=== PATIENT | female | born 1990 | race Hispanic/Latino ===

== ENCOUNTER 2018-10-18 19:37 | Emergency (ER) | payer BC ==
--- OUTSIDE RECORDS SUMMARY | 2018-10-18 19:41 | XMS REPORT ---
:1990 Author Organization eClinicalWorks Care Team Providers Name Role Phone Amanda Wyatt Provider Role Unavailable Allergies, Adverse Reactions, Alerts Substance Reaction Event Type N.K.D.A. Info Not Available Non Drug Allergy Problems Problem Type Condition Code Onset Dates Condition Status Assessment Irregular menstrual cycle N92.6 Active Assessment Encounter for screening for Z12.4 Active malignant neoplasm of cervix Problem Irregular menstrual cycle N92.6 Active Assessment Encounter for contraceptive Z30.9 Active management, unspecified Assessment Encounter for gynecological Z01.419 Active examination (general) (routine) without abnormal findings Medications Medication Code Code Instructions Start End Status Dosage System Date Date Excein [facility] 24108744180 250-250-65 MG Active 2 tablets Migraine Orally every 6 as needed hrs Results Name Result Date Reference Range Unit Abnormality Flag TEST URINE ----RESULTS neg 20170811 URINALYSIS AUTO W/O SCOPE (17547) ----PROTEIN neg 20170811 ----pH 5.5 20170811 ----NIT neg 20170811 ----TIERNEY neg [id number] ----URO 0.2 20170811 ----SPECIFIC GRAVITY 1.005 20170811 ----BLO 1+ 20170811 ----BILIRUBIN neg [id number] ----KETONES neg [id number] ----GLUCOSE neg [id number] Summary Purpose eClinicalWorks Submission
[2018-10-18 20:42] LABS: Absolute Lymphocytes (CBC) 1.9 K/uL (0.7-4.9); Basophils % 0.5 % (0-1.3); Lymphocytes % 18.4 % (15.3-44.8); MPV 9.4 fL (7.6-11.3); Monocytes % 5.7 % (3.3-12.3); RBC Red Blood Cell Count 4.29 M/uL (3.86-4.86)
[2018-10-18] MEDS ORDERED: ONDANSETRON 4 MG/2 ML VIAL ONE (20:50)
[2018-10-18] MEDS ORDERED: NA CHLORIDE 0.9% 500 ML ONE (20:50)
[2018-10-18] MEDS ORDERED: FAMOTIDINE 20 MG/2 ML VIAL IV ONE (20:51)
[2018-10-18] MEDS ORDERED: KETOROLAC 30 MG/ML INJ ONE (20:51)
[2018-10-18 20:57] LABS: ALT/SGPT 27 U/L (12-78); AST/SGOT 18 U/L (15-37); Albumin 3.8 g/dL (3.4-5.0); Alkaline Phosphatase 71 U/L (45-117); BUN Blood Urea Nitrogen 12 mg/dL (7-18); Bicarbonate 24 mmol/L (21-32); Bilirubin Direct < 0.1 mg/dL (0-0.2); Bilirubin Total 0.2 mg/dL (0.2-1.0); Glucose Level 102 mg/dL (74-106); Magnesium 2.3 mg/dL (1.8-2.4); NT PRO-BNP 44 pg/mL (<125); Potassium 3.7 mmol/L (3.5-5.1); Protein, Total 7.2 g/dL (6.4-8.2); Sodium Level 140 mmol/L (136-145); Troponin (Emerg Dept Use Only) < 0.02 ng/mL (0.0-0.045)
--- NOTE | 2018-10-18 21:42 | ER ---
Nurse's Notes [facility] Name: Selina Montalvo Age: 27 yrs Sex: Female : 1990 Arrival Date: 10/18/2018 Time: 19:41 Bed 23 Private MD: Basil Herron Diagnosis: Chest pain, unspecified;Chest pain on breathing;Pleurisy Presentation: 10/18 19:47 Presenting complaint: Patient states: int CP x 1 year but over the past 2 days has aa1 become constant. Denies any other symptoms. Transition of care: patient was not received from another setting of care. Onset of symptoms was October 17, 2018. Risk Assessment: Do you want to hurt yourself or someone else? Patient reports no desire to harm self or others. Initial Sepsis Screen: Does the patient meet any 2 criteria? No. Patient's initial sepsis screen is negative. Does the patient have a suspected source of infection? No. Patient's initial sepsis screen is negative. Care prior to arrival: None. 19:47 Method Of Arrival: Ambulatory aa1 19:47 Acuity: ELIS 3 aa1 Triage Assessment: 19:48 General: Appears in no apparent distress. comfortable, Behavior is calm, cooperative, aa1 appropriate for age. 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 - Social history:: Smoking status: Patient/guardian denies using tobacco. - Ebola Screening: : No symptoms or risks identified at this time. Screenin:55 Abuse screen: Denies threats or abuse. Denies injuries from another. Nutritional aj1 screening: No deficits noted. Tuberculosis screening: No symptoms or risk factors identified. 21:57 Fall Risk None identified. aj1 Assessment: 19:55 General: Appears in no apparent distress. comfortable, Behavior is calm, cooperative, aj1 appropriate for age. Pain: Complains of pain in chest. Neuro: Level of Consciousness is awake, alert, obeys commands, Oriented to person, place, time, situation. Cardiovascular: Reports chest pain, Heart tones S1 S2 present Patient's skin is warm and dry. Rhythm is sinus rhythm. Respiratory: Airway is patent Respiratory effort is even, unlabored, Respiratory pattern is regular, symmetrical. GI: No signs and/or symptoms were reported involving the gastrointestinal system. : No signs and/or symptoms were reported regarding the genitourinary system. EENT: No signs and/or symptoms were reported regarding the EENT system. Derm: No signs and/or symptoms reported regarding the dermatologic system. Skin is pink, warm \T\ dry. normal. Musculoskeletal: No signs and/or symptoms reported regarding the musculoskeletal system. Circulation, motion, and sensation intact. 20:53 Reassessment: Patient appears in no apparent distress at this time. No changes from aj1 previously documented assessment. Patient and/or family updated on plan of care and expected duration. Pain level reassessed. Patient is alert, oriented x 3, equal unlabored respirations, skin warm/dry/pink. 21:43 Reassessment: Patient appears in no apparent distress at this time. No changes from aj1 previously documented assessment. Patient and/or family updated on plan of care and expected duration. Pain level reassessed. Patient is alert, oriented x 3, equal unlabored respirations, skin warm/dry/pink. Vital Signs: 19:48 BP 155 / 101; Pulse 82; Resp 16; Temp 98.5; Pulse Ox 100% on R/A; Weight 68.04 kg; aa1 Height 5 ft. 5 in. (165.10 cm); Pain 7/10; 20:53 BP 119 / 79; Pulse 77; Resp 18; Pulse Ox 100% on R/A; aj1 21:43 BP 122 / 80; Pulse 75; Resp 18; Pulse Ox 100% on R/A; aj1 19:48 Body Mass Index 24.96 (68.04 kg, 165.10 cm) aa1 ED Course: 19:41 Patient arrived in ED. es 19:42 Basil Herron DO is Private Physician. es 19:45 Umesh Joseph MD is Attending Physician. kdr 19:48 Triage completed. aa1 19:48 Arm band placed on right wrist. aa1 19:55 Patient has correct armband on for positive identification. Bed in low position. Call aj1 light in reach. Side rails up X 1. court monitor on. Pulse ox on. NIBP on. 19:55 No provider procedures requiring assistance completed. aj1 20:06 Megan Ríos, RN is Primary Nurse. aj1 20:21 Initial lab(s) drawn, by me, sent to lab. EKG done, by ED staff. Inserted saline lock: lt1 20 gauge in right antecubital area, using aseptic technique. 20:54 XRAY Chest (1 view) In Process Unspecified. EDMS 21:41 Basil Herron DO is Referral Physician. kdr 21:57 IV discontinued, intact, bleeding controlled, No redness/swelling at site. Pressure aj1 dressing applied. Administered Medications: 20:45 Drug: Zofran 4 mg Route: IVP; Site: right antecubital; aj1 21:44 Follow up: Response: No adverse reaction aj1 20:45 Drug: NS 0.9% 500 ml Route: IV; Rate: bolus; Site: right antecubital; aj1 21:44 Follow up: IV Status: Completed infusion; IV Intake: 500ml aj1 20:45 Drug: Pepcid 20 mg Route: IVP; Site: right antecubital; aj1 21:45 Follow up: Response: No adverse reaction aj1 20:46 Drug: TORadol - Ketorolac 15 mg Route: IVP; Site: right antecubital; aj1 21:44 Follow up: Response: No adverse reaction aj1 21:45 Drug: SOLU-Medrol 125 mg Route: IVP; Site: right antecubital; aj1 21:57 Follow up: Response: No adverse reaction aj1 Intake: 21:44 IV: 500ml; Total: 500ml. aj1 Outcome: 21:42 Discharge ordered by . kdr 21:57 Discharged to home ambulatory, with family. aj1 21:57 Condition: good 21:57 Discharge instructions given to patient, Instructed on discharge instructions, follow up and referral plans. medication usage, Demonstrated understanding of instructions, follow-up care, medications, Prescriptions given X 3. 22:00 Patient left the ED. aj1 Signatures: Dispatcher [employer] EDMN Megan Ríos, DARBY RN aj1 Ebony Choi RN RN aa1 Umesh Joseph MD MD kdr Salyer, Edna es Tran, Leah lt1
--- NOTE | 2018-10-18 21:43 | EDPHYS ---
Physician Documentation [facility] Name: Selina Montalvo Age: 27 yrs Sex: Female : 1990 Arrival Date: 10/18/2018 Time: 19:41 Bed 23 Private MD: Gopal [facility] ED Physician Umesh Joseph HPI: 10/18 21:38 This 27 yrs old Female presents to ER via Ambulatory with complaints of Chest kdr pain x 2days. 21:38 The patient or guardian reports chest pain that is located primarily in the substernal kdr area, anterior chest wall, bilaterally. The pain does not radiate. Associated signs and symptoms: Pertinent positives: shortness of breath, Pertinent negatives: abdominal pain, cough, diaphoresis, dizziness, headache, lower extremity pain, lower extremity swelling, lightheadedness, nausea. The chest pain is described as burning, sharp, stabbing. Duration: The patient or guardian reports multiple episodes, that are intermittent, that wax and wane, with no pattern. Modifying factors: The symptoms are alleviated by nothing. the symptoms are aggravated by breathing, cough, deep breath, exertion, movement, twisting torso. Severity of pain: At its worst the pain was moderate in the emergency department the pain is unchanged. The patient has not experienced similar symptoms in the past, The has been intermittent for some weeks. The patient has not recently seen a physician. 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 - Social history:: Smoking status: Patient/guardian denies using tobacco. - Ebola Screening: : No symptoms or risks identified at this time. ROS: 21:38 Constitutional: Negative for fever, chills, and weight loss, Eyes: Negative for injury, kdr pain, redness, and discharge, ENT: Negative for injury, pain, and discharge, Neck: Negative for injury, pain, and swelling, Respiratory: Negative for shortness of breath, cough, wheezing, and pleuritic chest pain, Abdomen/GI: Negative for abdominal pain, nausea, vomiting, diarrhea, and constipation, Back: Negative for injury and pain, : Negative for injury, bleeding, discharge, and swelling, MS/Extremity: Negative for injury and deformity, Skin: Negative for injury, rash, and discoloration, Neuro: Negative for headache, weakness, numbness, tingling, and seizure activity. Psych: Negative for depression, anxiety, suicide ideation, homicidal ideation, and hallucinations, Allergy/Immunology: Negative for hives, rash, and allergies, Endocrine: Negative for neck swelling, polydipsia, polyuria, polyphagia, and marked weight changes, Hematologic/Lymphatic: Negative for swollen nodes, abnormal bleeding, and unusual bruising. 21:38 Cardiovascular: Positive for chest pain, Negative for edema, orthopnea, palpitations, paroxysmal nocturnal dyspnea. Exam: 21:04 ECG was reviewed by the Attending Physician. kdr 21:38 Constitutional: This is a well developed, well nourished patient who is awake, alert, kdr and in mild distress. Head/Face: Normocephalic, atraumatic. Eyes: Pupils equal round and reactive to light, extra-ocular motions intact. Lids and lashes normal. Conjunctiva and sclera are non-icteric and not injected. Cornea within normal limits. Periorbital areas with no swelling, redness, or edema. Neck: Trachea midline, no thyromegaly or masses palpated, and no cervical lymphadenopathy. Supple, full range of motion without nuchal rigidity, or vertebral point tenderness. No Meningismus. Chest/axilla: Normal chest wall appearance and motion. Nontender with no deformity. No lesions are appreciated. Cardiovascular: Regular rate and rhythm with a normal S1 and S2. No gallops, murmurs, or rubs. Normal PMI, no JVD. No pulse deficits. Respiratory: Lungs have equal breath sounds bilaterally, clear to auscultation and percussion. No rales, rhonchi or wheezes noted. No increased work of breathing, no retractions or nasal flaring. Abdomen/GI: Soft, non-tender, with normal bowel sounds. No distension or tympany. No guarding or rebound. No evidence of tenderness throughout. Back: No spinal tenderness. No costovertebral tenderness. Full range of motion. Skin: Warm, dry with normal turgor. Normal color with no rashes, no lesions, and no evidence of cellulitis. MS/ Extremity: Pulses equal, no cyanosis. Neurovascular intact. Full, normal range of motion. Neuro: Awake and alert, GCS 15, oriented to person, place, time, and situation. Cranial nerves II-XII grossly intact. Motor strength 5/5 in all extremities. Sensory grossly intact. Cerebellar exam normal. Normal gait. Psych: Awake, alert, with orientation to person, place and time. Behavior, mood, and affect are within normal limits. Vital Signs: 19:48 BP 155 / 101; Pulse 82; Resp 16; Temp 98.5; Pulse Ox 100% on R/A; Weight 68.04 kg; aa1 Height 5 ft. 5 in. (165.10 cm); Pain 7/10; 20:53 BP 119 / 79; Pulse 77; Resp 18; Pulse Ox 100% on R/A; aj1 21:43 BP 122 / 80; Pulse 75; Resp 18; Pulse Ox 100% on R/A; aj1 19:48 Body Mass Index 24.96 (68.04 kg, 165.10 cm) aa1 MDM: 21:38 Data reviewed: vital signs, nurses notes, lab test result(s), radiologic studies. kdr Counseling: I had a detailed discussion with the patient and/or guardian regarding: the historical points, exam findings, and any diagnostic results supporting the discharge/admit diagnosis, lab results, radiology results, the need for outpatient follow up. 21:42 Patient medically screened. [facility] 10/18 20:31 Order name: Basic Metabolic Panel; Complete Time: 21:34 [facility] 10/18 20:31 Order name: Liver (Hepatic) Function; Complete Time: 21:34 [facility] 10/18 20:32 Order name: Troponin (Emerg Dept Use Only); Complete Time: 21:34 [facility] 10/18 20:32 Order name: NT PRO-BNP; Complete Time: 21:34 [facility] 10/18 20:32 Order name: Magnesium; Complete Time: 21:34 [facility] 10/18 20:32 Order name: CBC with Automated Diff; Complete Time: 21:34 [facility] 10/18 20:32 Order name: Protime (+INR); Complete Time: 21:34 [facility] 10/18 19:57 Order name: XRAY Chest (1 view) [facility] 10/18 19:57 Order name: EKG; Complete Time: 20:31 [facility] 10/18 19:57 Order name: Cardiac monitoring; Complete Time: 20:22 [facility] 10/18 19:57 Order name: EKG - Nurse/Tech; Complete Time: 20:22 [facility] 10/18 19:57 Order name: IV Saline Lock; Complete Time: 20:22 [facility] 10/18 19:57 Order name: Labs collected and sent; Complete Time: 20: [facility] 10/18 19:57 Order name: O2 Per Protocol; Complete Time: 20: [facility] 10/18 19:57 Order name: O2 Sat Monitoring; Complete Time: 20:22 kdr EC:04 Rate is 73 beats/min. Rhythm is regular, Normal Sinus Rhythm with No ectopy. MI kdr interval is normal. QRS interval is normal. QT interval is normal. No Q waves. No ST changes noted. Clinical impression: Normal ECG. Administered Medications: 20:45 Drug: Zofran 4 mg Route: IVP; Site: right antecubital; aj1 21:44 Follow up: Response: No adverse reaction aj1 20:45 Drug: NS 0.9% 500 ml Route: IV; Rate: bolus; Site: right antecubital; aj1 21:44 Follow up: IV Status: Completed infusion; IV Intake: 500ml aj1 20:45 Drug: Pepcid 20 mg Route: IVP; Site: right antecubital; aj1 21:45 Follow up: Response: No adverse reaction aj1 20:46 Drug: TORadol - Ketorolac 15 mg Route: IVP; Site: right antecubital; aj1 21:44 Follow up: Response: No adverse reaction aj1 21:45 Drug: SOLU-Medrol 125 mg Route: IVP; Site: right antecubital; aj1 21:57 Follow up: Response: No adverse reaction aj1 Disposition: 10/18/18 21:42 Discharged to Home. Impression: Chest pain, unspecified, Chest pain on breathing, Pleurisy. - Condition is Stable. - Discharge Instructions: Nonspecific Chest Pain, Costochondritis, Pleurisy, Nonspecific Chest Pain, [id number]. - Prescriptions for Ibuprofen 600 mg Oral Tablet - take 1 tablet by ORAL route every 6 hours As needed take with food; 15 tablet. Tramadol 50 mg Oral Tablet - take 1 tablet by ORAL route every 8 hours as needed; 12 tablet. Medrol (Pierre) 4 mg Oral Tablets, Dose Pack - take 1 tablet by ORAL route as directed - follow package instructions; 1 packet. - Medication Reconciliation Form, Thank You Letter, Prescription Opioid Use form. - Follow up: Basil Herron DO; When: 1 - 2 days; Reason: If symptoms return, Further diagnostic work-up, Recheck today's complaints, Continuance of care, Re-evaluation by your physician. - Problem is new. - Symptoms have improved. Signatures: Dispatcher [employer] EDMS Megan Ríos RN RN aj1 Ebony Choi RN RN aa1 Umesh Joseph MD MD kdr Corrections: (The following items were deleted from the chart) 21:20 20:31 PROTIME (+INR)+COAG.LAB.BRZ ordered. EDMS EDMS 21:21 20:31 BASIC METABOLIC PANEL+C.LAB.BRZ ordered. EDMS EDMS 21:21 20:31 CBC+H.LAB.BRZ ordered. EDMS EDMS 21:21 20:31 HEPATIC FUNCTION+C.LAB.BRZ ordered. EDMS EDMS 21:21 20:31 MAGNESIUM+C.LAB.BRZ ordered. EDMS EDMS 21:21 20:31 PROBNP+C.LAB.BRZ ordered. EDMS EDMS 21:21 20:31 TROPONIN (EMERG DEPT USE ONLY)+C.LAB.BRZ ordered. EDAK EDMS 22:00 21:42 10/18/2018 21:42 Discharged to Home. Impression: Chest pain, unspecified; Chest aj1 pain on breathing; Pleurisy. Condition is Stable. Forms are Medication Reconciliation Form, Thank You Letter, Antibiotic Education, Prescription Opioid Use. Follow up: Basil Herron; When: 1 - 2 days; Reason: If symptoms return, Further diagnostic work-up, Recheck today's complaints, Continuance of care, Re-evaluation by your physician. Problem is new. Symptoms have improved. kdr
[2018-10-18] MEDS ORDERED: METHYLPREDNISOLONE 125 MG INJ ONE (22:06)
--- NOTE | 2018-10-19 08:58 | RAD REPORT ---
EXAM DESCRIPTION: RAD - Chest Single View - 10/18/2018 8:54 pm CLINICAL HISTORY: Chest pain COMPARISON: None. TECHNIQUE: AP portable chest image was obtained 0 hours . FINDINGS: Lung volumes are low accentuating vasculature and lung markings. Minimal edema or infiltra te could be masked in this setting. Lung base atelectasis is present. Heart and vasculature are chana l. No measurable pleural effusion and no pneumothorax. No acute bony abnormality seen. No acute aorti c findings suspected. IMPRESSION: Shallow inspiration exam with lung base atelectasis. This could potentially mask early i nfiltrate or edema.
--- NOTE | 2018-10-19 14:50 | EKG ---
Test Date: 2018-10-18 Test Time: 20:05:08 Microelectronics Technician: KARMA MEASUREMENT RESULTS: Intervals: Rate: 73 WI: 128 QRSD: 70 QT: 364 QTc: 401 [place]: P: 32 WI: 128 QRS: 38 T: 33 INTERPRETIVE STATEMENTS: Normal sinus rhythm Normal ECG No previous ECG available for comparison Electronically Signed On 10-19-18 14:47:26 CDT by Benjamin Donahue
== END 2018-10-18 22:00 | disposition home or self-care (01) ==
LOC: ER 19:37
DX: R09.1 Pleurisy (principal); R07.9 Chest pain, unspecified
CPT/HCPCS: 36415; 71045; 80048; 80076; 83735; 83880; 84484; 85025; 85610; 93005; 96361; 96374; 96375; 99284; J2405; J2930

== ENCOUNTER 2019-01-15 09:50 | Emergency (ER) | payer BC ==
--- OUTSIDE RECORDS SUMMARY | 2019-01-15 09:52 | XMS REPORT ---
[...] End Status Dosage System Date Date Excein [facility] [id number] 250-250-65 MG Active 2 tablets Migraine Orally every 6 as needed hrs Results Name Result Date Reference Range Unit Abnormality Flag TEST URINE ----RESULTS neg [id number] URINALYSIS AUTO W/O SCOPE (32048) ----PROTEIN neg 20170811 ----pH 5.5 20170811 ----NIT neg [id number] ----TIERNEY neg [id number] ----URO 0.2 20170811 ----SPECIFIC GRAVITY 1.005 20170811 ----BLO 1+ 20170811 ----BILIRUBIN neg [id number] ----KETONES neg [id number] ----GLUCOSE neg [id number] Summary Purpose eClinicalWorks Submission
[2019-01-15] MEDS ORDERED: KETOROLAC 30 MG/ML INJ ONE (10:46)
[2019-01-15] MEDS ORDERED: PROMETHAZINE 25 MG/ML VIAL ONE (10:46)
[2019-01-15] MEDS ORDERED: DIPHENHYDRAMINE 50 MG/ML VIAL ONE (10:46)
[2019-01-15] MEDS ORDERED: NA CHLORIDE 0.9% 1,000 ML ONE ×2 (10:46→12:01)
[2019-01-15 10:58] LABS: Absolute Lymphocytes (CBC) 1.2 K/uL (0.7-4.9); Basophils % 0.6 % (0-1.3); Hematocrit 37.5 % (36.0-45.0); Lymphocytes % 13.9 % (15.3-44.8); MPV 8.9 fL (7.6-11.3); RBC Red Blood Cell Count 4.73 M/uL (3.86-4.86)
[2019-01-15 11:09] LABS: Urine Blood NEGATIVE (NEG); Urine Glucose NEGATIVE (NEG); Urine Protein NEGATIVE (NEG); Urine Specific Gravity 1.015 (1.005-1.030); Urine pH 8.5 (5.0-7.0)
[2019-01-15 11:19] LABS: BUN Blood Urea Nitrogen 13 mg/dL (7-18); Bicarbonate 27 mmol/L (21-32); Glucose Level 106 mg/dL (74-106); Potassium 3.7 mmol/L (3.5-5.1); Sodium Level 145 mmol/L (136-145)
[2019-01-15 11:29] LABS: Urine Amorphous Sediment 3+ /HPF (NONE SEEN); Urine Bacteria <20 /HPF (<20); Urine Culture Reflex Order NOT NEEDED; Urine RBC <5 /HPF (NONE SEEN)
[2019-01-15] MEDS ORDERED: FENTANYL CITR 100 MCG/2 ML ONE (12:01)
--- NOTE | 2019-01-15 13:32 | EDPHYS ---
Physician Documentation [facility] Name: Selina Montalvo Age: 28 yrs Sex: Female : 1990 Arrival Date: 01/15/2019 Time: 09:52 Bed 15 Private MD: Unknown, Unknown ED Physician Jenn Moise HPI: 01/15 11:11 This 28 yrs old Female presents to ER via Ambulatory with complaints of snw Headache, Vomiting. 11:11 The patient complains of pain to the top of head and forehead. The patient describes snw the headache as a pressure, throbbing. Onset: The symptoms/episode began/occurred yesterday. Associated signs and symptoms: Pertinent positives: nausea, vomiting. Headache History: The patient has had previous headaches and this one is similar to previous episodes. The symptoms are alleviated by nothing. the symptoms are aggravated by lights, movement. The patient has experienced similar episodes in the past, multiple times, chronically. The patient has not recently seen a physician, the patient's primary care provider is Dr. Dr. Herron. Pt states biweekly headache and then daily headache this week, worsening last pm. 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 - Social history:: Smoking status: unknown. - Ebola Screening: : No symptoms or risks identified at this time. ROS: 11:10 Constitutional: Negative for fever, chills, and weight loss, Eyes: Negative for injury, snw pain, redness, and discharge, ENT: Negative for injury, pain, and discharge, Neck: Negative for injury, pain, and swelling, Cardiovascular: Negative for chest pain, palpitations, and edema, Respiratory: Negative for shortness of breath, cough, wheezing, and pleuritic chest pain. 11:10 Back: Negative for injury and pain, : Negative for injury, bleeding, discharge, and swelling, MS/Extremity: Negative for injury and deformity, Skin: Negative for injury, rash, and discoloration. 11:10 Abdomen/GI: Positive for nausea, vomiting. 11:10 Neuro: Positive for headache, of the top of head and forehead. Exam: 11:10 Constitutional: This is a well developed, well nourished patient who is awake, alert, snw and in no acute distress. Head/Face: Normocephalic, atraumatic. Eyes: Pupils equal round and reactive to light, extra-ocular motions intact. Lids and lashes normal. Conjunctiva and sclera are non-icteric and not injected. Cornea within normal limits. Periorbital areas with no swelling, redness, or edema. ENT: Nares patent. No nasal discharge, no septal abnormalities noted. Tympanic membranes are normal and external auditory canals are clear. Oropharynx with no redness, swelling, or masses, exudates, or evidence of obstruction, uvula midline. Mucous membranes moist. Neck: Trachea midline, no thyromegaly or masses palpated, and no cervical lymphadenopathy. Supple, full range of motion without nuchal rigidity, or vertebral point tenderness. No Meningismus. Chest/axilla: Normal chest wall appearance and motion. Nontender with no deformity. No lesions are appreciated. Cardiovascular: Regular rate and rhythm with a normal S1 and S2. No gallops, murmurs, or rubs. Normal PMI, no JVD. No pulse deficits. Respiratory: Lungs have equal breath sounds bilaterally, clear to auscultation and percussion. No rales, rhonchi or wheezes noted. No increased work of breathing, no retractions or nasal flaring. Abdomen/GI: Soft, non-tender, with normal bowel sounds. No distension or tympany. No guarding or rebound. No evidence of tenderness throughout. Back: No spinal tenderness. No costovertebral tenderness. Full range of motion. Skin: Warm, dry with normal turgor. Normal color with no rashes, no lesions, and no evidence of cellulitis. MS/ Extremity: Pulses equal, no cyanosis. Neurovascular intact. Full, normal range of motion. Neuro: Awake and alert, GCS 15, oriented to person, place, time, and situation. Cranial nerves II-XII grossly intact. Motor strength 5/5 in all extremities. Sensory grossly intact. Cerebellar exam normal. Normal gait. Psych: Awake, alert, with orientation to person, place and time. Behavior, mood, and affect are within normal limits. Vital Signs: 09:55 BP 149 / 106; Pulse 85; Resp 16; Temp 97.4; Pulse Ox 100% on R/A; Weight 68.04 kg; la1 Height 5 ft. 6 in. (167.64 cm); 10:55 BP 129 / 98; Pulse 77; Resp 15; Temp 97.9(O); Pulse Ox 100% ; rb1 11:55 BP 125 / 81; Pulse 73; Resp 16; Pulse Ox 100% on R/A; Pain 9/10; rb1 13:39 BP 120 / 87; Pulse 99; Resp 17; Temp 98.2(O); Pulse Ox 98% on R/A; Pain 7/10; rb1 09:55 Body Mass Index 24.21 (68.04 kg, 167.64 cm) la1 [place] Coma Score: 13:32 Eye Response: spontaneous(4). Verbal Response: oriented(5). Motor Response: obeys snw commands(6). Total: 15. MDM: 10:21 Patient medically screened. snw 13:32 Data reviewed: vital signs, nurses notes. Counseling: I had a detailed discussion with snw the patient and/or guardian regarding: the historical points, exam findings, and any diagnostic results supporting the discharge/admit diagnosis, the presence of at least one elevated blood pressure reading (>120/80) during this emergency department visit, the need for outpatient follow up, to return to the emergency department if symptoms worsen or persist or if there are any questions or concerns that arise at home. Special discussion: Based on the history and exam findings, there is no indication for further emergent testing or inpatient evaluation. I discussed with the patient/guardian the need to see the neurologist for further evaluation of the symptoms. I discussed with the patient/guardian the need to see the primary care provider for further evaluation of the symptoms. 01/15 10:04 Order name: Urine Microscopic Only; Complete Time: 11:41 w 01/15 10:36 Order name: Basic Metabolic Panel; Complete Time: 11:20 snw 01/15 10:36 Order name: CBC with Diff; Complete Time: 11:06 snw 01/15 10:38 Order name: Urine Dipstick--Ancillary (enter results); Complete Time: 11:10 01/15 10:38 Order name: Urine --Ancillary (enter results); Complete Time: 11:10 eb 01/15 10:04 Order name: Urine Test (obtain specimen); Complete Time: 10:42 snw 01/15 10:04 Order name: Urine Dipstick-Ancillary (obtain specimen); Complete Time: 10:42 snw 01/15 10:36 Order name: IV Saline Lock; Complete Time: 10:59 snw 01/15 10:36 Order name: Labs collected and sent; Complete Time: 10:59 snw Administered Medications: 10:55 Drug: NS 0.9% 1000 ml Route: IV; Rate: 1 bolus; Site: right antecubital; rb1 12:05 Follow up: IV Status: Completed infusion rb1 10:55 Drug: TORadol - Ketorolac 15 mg Route: IVP; Site: right antecubital; rb1 11:10 Follow up: Response: No adverse reaction; Pain is unchanged, physician notified rb1 10:55 Drug: Phenergan 12.5 mg Route: IVP; Site: right antecubital; rb1 11:10 Follow up: Response: No adverse reaction; Nausea is decreased rb1 10:55 Drug: Benadryl 12.5 mg Route: IVP; Site: right antecubital; rb1 11:10 Follow up: Response: No adverse reaction rb1 12:09 Drug: NS 0.9% 1000 ml Route: IV; Rate: 1 bolus; Site: right antecubital; rb1 13:38 Follow up: IV Status: Completed infusion rb1 12:09 Drug: fentaNYL (PF) 25 mcg Route: IVP; Site: right antecubital; rb1 12:28 Follow up: Response: No adverse reaction; Pain is decreased rb1 13:50 Drug: Valium 2 mg Route: IVP; Site: right antecubital; rb1 14:04 Follow up: Response: No adverse reaction rb1 Disposition: 01/16 07:09 Co-signature as Attending Physician, Jenn Moise MD. ma2 Disposition: 01/15/19 13:31 Discharged to Home. Impression: Migraine, Nausea and vomiting. - Condition is Stable. - Discharge Instructions: Migraine Headache, Rehydration, Adult. - Prescriptions for Zofran 4 mg Oral Tablet - take 1 tablet by ORAL route every 12 hours As needed; 20 tablet. orphenadrine citrate 100 mg Oral Tablet Sustained Release - take 1 tablet by ORAL route 2 times per day As needed; 20 tablet. - Work release form, Medication Reconciliation Form, Thank You Letter, Antibiotic Education, Prescription Opioid Use form. - Follow up: Private Physician; When: 2 - 3 days; Reason: Recheck today's complaints, Continuance of care, Re-evaluation by your physician. Follow up: Norbert Baez MD; When: 1 week; Reason: Recheck today's complaints, Continuance of care. Signatures: Dispatcher [employer] EDMS Ariana Michelle, CREDIT ADMINISTRATION OFFICER-C CREDIT ADMINISTRATION OFFICER-Csnw Josemanuel Martinez RN RN la1 Bhargavi Weeks, RN RN rb1 Jenn Moise MD MD ma2 Corrections: (The following items were deleted from the chart) 01/15 09:55 09:54 PMHx: None; la1 la1 14:06 13:31 01/15/2019 13:31 Discharged to Home. Impression: Migraine; Nausea and vomiting. rb1 Condition is Stable. Forms are Medication Reconciliation Form, Thank You Letter, Antibiotic Education, Prescription Opioid Use. Follow up: Private Physician; When: 2 - 3 days; Reason: Recheck today's complaints, Continuance of care, Re-evaluation by your physician. Follow up: Norbert Baez; When: 1 week; Reason: Recheck today's complaints, Continuance of care. snw
--- NOTE | 2019-01-15 13:32 | ER ---
Nurse's Notes [facility] Name: Selina Montalvo Age: 28 yrs Sex: Female : 1990 Arrival Date: 01/15/2019 Time: 09:52 Bed 15 Private MD: Unknown, Unknown Diagnosis: Migraine;Nausea and vomiting Presentation: 01/15 09:56 Presenting complaint: Patient states: Migraine since yesterday, started vomiting today. la1 Transition of care: patient was not received from another setting of care. Onset of symptoms was January 15, 2019. Risk Assessment: Do you want to hurt yourself or someone else? Patient reports no desire to harm self or others. Initial Sepsis Screen: Does the patient meet any 2 criteria? No. Patient's initial sepsis screen is negative. Does the patient have a suspected source of infection? No. Patient's initial sepsis screen is negative. Care prior to arrival: None. 09:56 Method Of Arrival: Ambulatory la1 09:56 Acuity: ELIS 3 la1 Triage Assessment: 10:00 Headache History: The patient has had previous headaches and this one is similar to rb1 previous episodes. 10:00 Pain: Also complains of nausea, photophobia. 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 - Social history:: Smoking status: unknown. - Ebola Screening: : No symptoms or risks identified at this time. Screenin:00 Abuse screen: Denies threats or abuse. Nutritional screening: No deficits noted. rb1 Tuberculosis screening: No symptoms or risk factors identified. Fall Risk None identified. Assessment: 10:00 General: Appears uncomfortable, Behavior is calm, cooperative, Denies fever. Pain: rb1 Complains of pain in headache Pain currently is 8 out of 10 on a pain scale. Neuro: Level of Consciousness is awake, alert, obeys commands, Oriented to person, place, time, situation. Neuro: Reports headache frontal area, photophobia. Cardiovascular: Capillary refill < 3 seconds is brisk in bilateral fingers. Respiratory: Airway is patent Respiratory effort is even, unlabored, Respiratory pattern is regular, symmetrical. GI: Reports diarrhea, nausea, vomiting, since this morning. : No signs and/or symptoms were reported regarding the genitourinary system. Derm: Skin is pink, warm \T\ dry. 11:00 Reassessment: Patient appears in no apparent distress at this time. No changes from [facility] previously documented assessment. 11:55 Reassessment: Patient appears in no apparent distress at this time. Patient and/or rb1 family updated on plan of care and expected duration. Pain level reassessed. Patient is alert, oriented x 3, equal unlabored respirations, skin warm/dry/pink. 12:44 Reassessment: Pt. is resting with eyes closed, respirations even, unlabored. at [facility] bedside. 13:39 Reassessment: Patient appears in no apparent distress at this time. Patient and/or rb1 family updated on plan of care and expected duration. Pain level reassessed. Patient is alert, oriented x 3, equal unlabored respirations, skin warm/dry/pink. 13:50 Reassessment: Discharge pending due to shot time. rb1 Vital Signs: 09:55 BP 149 / 106; Pulse 85; Resp 16; Temp 97.4; Pulse Ox 100% on R/A; Weight 68.04 kg; la1 Height 5 ft. 6 in. (167.64 cm); 10:55 BP 129 / 98; Pulse 77; Resp 15; Temp 97.9(O); Pulse Ox 100% ; rb1 11:55 BP 125 / 81; Pulse 73; Resp 16; Pulse Ox 100% on R/A; Pain 9/10; rb1 13:39 BP 120 / 87; Pulse 99; Resp 17; Temp 98.2(O); Pulse Ox 98% on R/A; Pain 7/10; rb1 09:55 Body Mass Index 24.21 (68.04 kg, 167.64 cm) la1 [place] Coma Score: 13:32 Eye Response: spontaneous(4). Verbal Response: oriented(5). Motor Response: obeys snw commands(6). Total: 15. ED Course: 09:52 Patient arrived in ED. ag5 09:52 Unknown, Unknown is Private Physician. ag5 09:53 Arm band placed on right wrist. la1 09:57 Triage completed. la1 09:58 Ariana Michelle FNP-C [facility] snw 09:58 Jenn Moise MD is Attending Physician. snw 09:59 Bhargavi Weeks, DARBY is Primary Nurse. rb1 10:00 Patient has correct armband on for positive identification. Bed in low position. Call rb1 light in reach. Side rails up X 1. Pulse ox on. NIBP on. Warm blanket given. 13:31 Norbert Baez MD is Referral Physician. snw 14:05 No provider procedures requiring assistance completed. IV discontinued, intact, rb1 bleeding controlled, No redness/swelling at site. Pressure dressing applied. Administered Medications: 10:55 Drug: NS 0.9% 1000 ml Route: IV; Rate: 1 bolus; Site: right antecubital; rb1 12:05 Follow up: IV Status: Completed infusion rb1 10:55 Drug: TORadol - Ketorolac 15 mg Route: IVP; Site: right antecubital; rb1 11:10 Follow up: Response: No adverse reaction; Pain is unchanged, physician notified rb1 10:55 Drug: Phenergan 12.5 mg Route: IVP; Site: right antecubital; rb1 11:10 Follow up: Response: No adverse reaction; Nausea is decreased rb1 10:55 Drug: Benadryl 12.5 mg Route: IVP; Site: right antecubital; rb1 11:10 Follow up: Response: No adverse reaction rb1 12:09 Drug: NS 0.9% 1000 ml Route: IV; Rate: 1 bolus; Site: right antecubital; rb1 13:38 Follow up: IV Status: Completed infusion rb1 12:09 Drug: fentaNYL (PF) 25 mcg Route: IVP; Site: right antecubital; rb1 12:28 Follow up: Response: No adverse reaction; Pain is decreased rb1 13:50 Drug: Valium 2 mg Route: IVP; Site: right antecubital; rb1 14:04 Follow up: Response: No adverse reaction rb1 Outcome: 13:31 Discharge ordered by . snw 14:05 Discharged to home ambulatory, with significant other. rb1 14:05 Condition: stable 14:05 Discharge instructions given to patient, Instructed on discharge instructions, follow up and referral plans. medication usage, Demonstrated understanding of instructions, follow-up care, medications, Prescriptions given X 2. 14:06 Patient left the ED. rb1 Signatures: Ariana Michelle, CENTER MEDICAL AND LAB DIRECTOR-C CENTER MEDICAL AND LAB DIRECTOR-Csnw Josemanuel Martinez RN RN la1 Bhargavi Weeks RN RN rb1 Nura Fernandez ag5 Corrections: (The following items were deleted from the chart) 09:55 09:54 PMHx: None; neto duque
[2019-01-15] MEDS ORDERED: DIAZEPAM 10 MG/2 ML INJ SYRINGE ONE (13:47)
[2019-01-15 14:19] VITALS: BP 120/87; TEMP 98.2; O2SAT 98
== END 2019-01-15 14:06 | disposition home or self-care (01) ==
LOC: ER 09:50
DX: G43.909 Migraine, unspecified, not intractable, without status migrainosus (principal); R11.2 Nausea with vomiting, unspecified
CPT/HCPCS: 96361; 85025; 80048; 36415; 81025; 96375; 96374; 99283; J2550; J3360; J3010; J7030 ×2; 81003; 81015